=== PATIENT | female | born 1995 | race Caucasian/White ===

== ENCOUNTER 2018-12-30 21:29 | Emergency (ER) | payer BC ==
[2018-12-30] MEDS: OXYCODONE/ACETAMINOPHEN (5/325) TAB PO (23:47)
[2018-12-30] MEDS: IBUPROFEN 600 MG TAB PO (23:47)
[2018-12-30] MEDS: BACITRACIN 0.9 GM OINT TOP ×2 (23:48→23:53)
== END 2018-12-31 01:01 | disposition home or self-care (01) ==
LOC: FTE 12-31 01:01
DX: S69.91XA Unspecified injury of right wrist, hand and finger(s), initial encounter (principal); W23.0XXA Caught, crushed, jammed, or pinched between moving objects, initial encounter; Y92.9 Unspecified place or not applicable
CPT/HCPCS: 73140; 81025; 99283-25